=== PATIENT | male | born 1955 | race Asian ===

== ENCOUNTER 2023-08-23 08:57 | Day surgery (SDC) | payer OTHER ==
[~2023-08-23] VITALS: Ht 170.2 cm; Wt 72.6 kg
[2023-08-23] MEDS ORDERED: fentaNYL citrate 0.05 MG/ML VIAL ONE (10:23)
[2023-08-23] MEDS ORDERED: LIDOCAINE 2% 100 MG/5 ML UJET TP ONE ×2 (10:24→11:30)
[2023-08-23] MEDS: fentaNYL citrate 0.05 MG/ML VIAL IVP ONE (10:57)
[2023-08-23] MEDS ORDERED: LABETALOL 20 MG/4 ML VIAL IVP ONE (11:04)
[2023-08-23] MEDS: LABETALOL 20 MG/4 ML VIAL IVP ONE (11:06)
== END 2023-08-23 11:58 | disposition home or self-care (01) ==
LOC: MDS 08:57 → MMU 09:00 → MDS 11:58
PROVIDERS: ATTEND Internal Medicine Gastroenterology
DX: Z09 Encounter for follow-up examination after completed treatment for conditions other than malignant neoplasm (principal); K63.5 Polyp of colon; I10 Essential (primary) hypertension; Z86.010 Personal history of colon polyps
CPT/HCPCS: 45385; 82948; J3010; J3490